=== PATIENT | female | born 1995 | race Caucasian/White ===

== ENCOUNTER 2020-01-01 14:03 | Emergency (ER) | payer SELFPAY ==
[~2020-01-01] VITALS: Ht 160 cm; Wt 47.9 kg
[2020-01-01 14:06] VITALS: BP 111/77
[2020-01-01 15:15] LABS: BASOPHILS # (AUTO) 0.08 x10^3/uL (0-0.1); BASOPHILS % (AUTO) 1 % (0-1); EOSINOPHILS # (AUTO) 0.12 x10^3/uL (0-0.4); EOSINOPHILS % (AUTO) 2 % (1-7); LYMPHOCYTES # (AUTO) 2.15 x10^3/uL (1-3.4); LYMPHOCYTES % (AUTO) 29 % (22-44); MD NO; MEAN CORPUSCULAR HEMOGLOBIN 30.5 pg (27.0-34.8); MEAN CORPUSCULAR VOLUME 89.7 fL (80-100); MEAN PLATELET VOLUME 8.8 fL (7.4-10.4); MONOCYTES # (AUTO) 0.71 x10^3/uL (0.2-0.8); MONOCYTES % (AUTO) 10 % (2-9); NEUTROPHILS # (AUTO) 4.43 x10^3/uL (1.8-6.8); NEUTROPHILS % (AUTO) 59 % (42-75); PLATELET COUNT 281 x10^3/uL (130-400); RED BLOOD COUNT 4.84 x10^6/uL (3.82-5.3); RED CELL DISTRIBUTION WIDTH 13.1 % (9.6-15.2)
[2020-01-01 15:27] LABS: ALBUMIN 3.6 g/dL (3.4-5.0); ANION GAP 6 mmol/L (5-15); CALCIUM 8.7 mg/dL (8.5-10.1); CHLORIDE 109 mmol/L (98-107); CREATININE 0.92 mg/dL (0.55-1.02)
--- NOTE | 2020-01-01 15:33 | NUR ---
CLEAN CATCH UA COLLECTED-SENT PATIENT DEFERRING GYNECOLOGICAL EXAM WELL TRANSVAGINAL ULTRASOUND-INSTEAD WOULD ONLY LIKE UA/EXTERNAL ABD ULTRASOUND. pROVIDER AWARE AND AGREEABLE
[2020-01-01 16:00] LABS: MICROSCOPIC INDICATED
[2020-01-01 16:03] LABS: CULTURE INDICATED? NO
--- NOTE | 2020-01-01 16:20 | NUR ---
with reassessment-patient not in room/nor are her belongings (radio news writer searched unit for her including the restrooms)-to no avail. Assumed to have left ama. ER MD/charge master analyst made aware
== END 2020-01-01 16:37 | disposition other institution (70) ==
LOC: ED 16:31
DX: R10.31 Right lower quadrant pain (principal)
CPT/HCPCS: 36415; 80048; 81001; 82040; 84703; 85025; 87491; 87591; 99283

== ENCOUNTER 2021-03-01 03:42 | Emergency (ER) | payer MEDICAID ==
[~2021-03-01] VITALS: Ht 160 cm; Wt 50.3 kg
[2021-03-01 03:46] VITALS: BP 109/72
[2021-03-01] MEDS ORDERED: FLUORESCEIN OPHTHALMIC 1 MG STRIP ONE (04:38)
[2021-03-01] MEDS ORDERED: PROPARACAINE OPHTH 0.5%, 15ML ONE (04:38)
[2021-03-01] MEDS ORDERED: FLUORESCEIN OPHTHALMIC 1 MG STRIP EACHEYE ONE (05:00)
[2021-03-01] MEDS ORDERED: PROPARACAINE OPHTH 0.5%, 15ML EACHEYE ONE (05:00)
--- NOTE | 2021-03-01 05:19 | NUR ---
Patient/Caregiver given discharge instructions and they have confirmed that they understand the instructions. Patient ambulatory with steady gait.
== END 2021-03-01 05:20 | disposition home or self-care (01) ==
LOC: ED 04:12
DX: H10.31 Unspecified acute conjunctivitis, right eye (principal)
CPT/HCPCS: 99283

== ENCOUNTER 2021-07-09 00:19 | Emergency (ER) | payer MEDICAID ==
[~2021-07-09] VITALS: Ht 160 cm; Wt 49.4 kg
[2021-07-09 00:26] VITALS: BP 120/87
--- NOTE | 2021-07-09 02:17 | NUR ---
PATIENT REPORTS VAGINAL DISCOMFORT AND ITCHING FOR 2 DAYS. DENIES USING ANYTHING TO RELIVE PAIN
--- NOTE | 2021-07-09 02:51 | NUR ---
PATIENT ELOPED FROM ROOM
== END 2021-07-09 02:53 ==
LOC: ED 01:00
DX: L29.2 Pruritus vulvae (principal)
CPT/HCPCS: 36415; 84703; 99283